=== PATIENT | male | born 1940 | race Caucasian/White ===

== ENCOUNTER → 2016-04-15 | Outpatient (CLI) | payer MEDICARE, OTHER ==
--- NOTE | 2016-04-15 09:21 | RAD ---
EXAM DESCRIPTION: Left hand series. CLINICAL HISTORY: Left hand pain. COMPARISON: February 08, 2016, right wrist TECHNIQUE: Three views were submitted for evaluation. 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 These findings are similar to the contralateral hand dated February 08, 2016. Soft tissues are unremarkable. Further imaging could be considered if there is clinical concern for an occult scaphoid fracture (pain over the anatomical snuff box). IMPRESSION: Degenerative change as described above. No definitive fracture noted on today's Electronically signed by: Jonh Hensley MD 04/15/2016 09:19
== END ==
LOC: RAD 08:18
PROVIDERS: ATTEND Orthopaedic Surgery
DX: M79.642 Pain in left hand (principal); M12.842 Other specific arthropathies, not elsewhere classified, left hand

== ENCOUNTER → 2016-12-19 | Outpatient (CLI) | payer MEDICARE, OTHER ==
--- NOTE | 2016-12-19 12:24 | MRI ---
EXAM DESCRIPTION: Lumbar Spine w/o Contrast CLINICAL HISTORY: 76 years, Male, LUMBAR RADICULOPATHY right leg pain COMPARISON: FINDINGS: Sagittal and axial sequences. Bone marrow signal is somewhat heterogeneous but not worrisome. Mild Modic changes L4-5 and L5-S1. Conus terminates at L1. Mild bulge L1-2. L2-3 disc unremarkable. Mild facet degenerative change. At L3-4 narrowing with diffuse bulging disc and mild central stenosis. At L4-5, narrowing with diffuse bulging disc facet degenerative change. Moderately severe central stenosis. At L5-S1 narrowing with mild bulging disc asymmetric to the left. Slight left foraminal encroachment. IMPRESSION: 1. Narrowing L4-5 with diffuse bulging disc and degenerative change. Moderately severe central stenosis. 2. Mild narrowing with bulging disc L3-4. Facet degenerative change and mild central stenosis 3. Bulging disc L5-S1 asymmetric to left with foraminal narrowing Electronically signed by: Marco Antonio Morillo MD 12/19/2016 12:23 PM CDT
== END | disposition home or self-care (01) ==
LOC: MRI 09:05
PROVIDERS: ATTEND Family Medicine
DX: M54.16 Radiculopathy, lumbar region (principal)

== ENCOUNTER → 2017-01-05 | Outpatient (CLI) | payer MEDICARE, OTHER ==
--- NOTE | 2017-01-05 11:44 | RAD ---
EXAM DESCRIPTION: Hand,Right 3 Views CLINICAL HISTORY: PAIN IN RIGHT HAND COMPARISON: None. TECHNIQUE: 3 views right. FINDINGS: Degenerative changes are observed in the distal interphalangeal joints. No fracturing is detected. Some calcification of the triangle fibrocartilage is noted. Proximal interphalangeal joint arthritis is also observed in the fourth and fifth digits. Degenerative changes are observed in the metacarpal carpal articulation of the first digit. IMPRESSION: Degenerative changes are observed as described above. No fracturing is detected. Electronically signed by: Ryan Ellison MD 01/05/2017 11:42 AM CDT
--- NOTE | 2017-01-05 11:45 | RAD ---
EXAM DESCRIPTION: Thumb,Right CLINICAL HISTORY: PAIN IN RIGHT THUMB COMPARISON: None. TECHNIQUE: 3 views right FINDINGS: Degenerative changes are observed in the distal interphalangeal joint. Degenerative changes are also observed in the metacarpal carpal articulation of the first digit. No fracturing is detected. No foreign body is seen in the soft tissues. IMPRESSION: Degenerative changes are observed in the distal interphalangeal joint and metacarpal carpal joint. Electronically signed by: Ryan Ellison MD 01/05/2017 11:43 AM CDT
== END | disposition home or self-care (01) ==
LOC: RAD 07:45
PROVIDERS: ATTEND Orthopaedic Surgery
DX: M79.641 Pain in right hand (principal); M79.644 Pain in right finger(s)

== ENCOUNTER → 2017-01-07 | Outpatient (CLI) | payer MEDICARE, OTHER ==
--- NOTE | 2017-01-09 15:41 | MRI ---
EXAM DESCRIPTION: MRI left shoulder CLINICAL HISTORY: Shoulder pain. Rotator cuff syndrome COMPARISON: None. TECHNIQUE: Multiplanar, multisequence MR images of the left shoulder FINDINGS: Diffuse supraspinatus tendinosis with tendon thickening and increased signal from the critical zone to the insertion. At the posterior supraspinatus/anterior infraspinatus, there is a high-grade partial tear with marked thinning of the tendon from the critical zone to the insertion. Medial lateral extent of tear about 14 mm and anteroposterior about 12 mm. Small region of resorptive cystic change and edema in the oblique facet greater tuberosity. Infraspinatus tendinosis of the mid tendon. Supraspinatus muscle volume is normal with no fatty infiltration. Infraspinatus muscle volume mildly decreased with grade 1 fatty infiltration Teres minor tendon intact. Moderate muscle volume loss and grade 1 fatty filtration. No abnormality of the quadrilateral space or deltoid Subscapularis tendon intact. Normal muscle volume with mild grade 1 fatty streaking Long head biceps tendon normal in the bicipital groove. Intra-articular tendinosis with intratendinous increased signal and mild thickening. Labral anchor intact with some degenerative signal in the anchor and superior labrum. Developmental retroverted glenoid with hypertrophic posterior labrum. No acute labral detachment No high-grade glenohumeral chondrosis or focal osteochondral lesion. Minimal joint fluid without synovitis or intra-articular body. Mild acromioclavicular osteoarthritis. Lateral downsloping of the acromion with subacromial subdeltoid bursal edema IMPRESSION: Structurally significant high-grade partial tear of the posterior supraspinatus/anterior infraspinatus with tendon thinning from the critical zone to the insertion Supraspinatus tendinosis and intra-articular biceps impingement tendinosis Developmental retroverted glenoid with some degenerative signal in the superior labrum Electronically signed by: Nick Buckley MD 01/09/2017 3:40 PM CDT
== END | disposition home or self-care (01) ==
LOC: FT 15:16
PROVIDERS: ATTEND Orthopaedic Surgery
DX: M75.102 Unspecified rotator cuff tear or rupture of left shoulder, not specified as traumatic (principal); X58.XXXA Exposure to other specified factors, initial encounter

== ENCOUNTER → 2017-09-14 | Outpatient (CLI) | payer MEDICARE, OTHER | LOC: GMAB 10:52 | PROVIDERS: ATTEND Family Medicine | DX: E53.8 Deficiency of other specified B group vitamins (principal); R53.82 Chronic fatigue, unspecified; Z12.5 Encounter for screening for malignant neoplasm of prostate | CPT/HCPCS: 82607; 84403; 84443; G0103 ==

== ENCOUNTER → 2019-03-17 | Outpatient (CLI) | payer MEDICARE, OTHER ==
--- NOTE | 2019-03-17 09:51 | RAD ---
EXAM DESCRIPTION: Knee,Left Complete CLINICAL HISTORY: PAIN IN LEFT KNEE COMPARISON: None. IMPRESSION: 4 standing views of the left knee show no acute fracture, focal bone destruction, or joint dislocation. No significant joint space narrowing of the tibiofemoral compartments. Mild narrowing of the lateral patellofemoral compartment with mild posterior superior and inferior osteophytes and irregularity of the patellar articular surface consistent with moderate osteoarthritic changes No joint effusion. Soft tissues are unremarkable. Electronically signed by: Keyshawn Patrick MD 03/17/2019 9:49 AM [facility]
--- NOTE | 2019-03-17 09:51 | RAD ---
EXAM DESCRIPTION: Pelvis CLINICAL HISTORY: PAIN IN LEFT HIP COMPARISON: None. TECHNIQUE: AP pelvis FINDINGS: Prostatic calcification is observed. Phlebolith-like calcification is observed in the pelvis and scrotum. Degenerative changes are observed in the lower lumbar spine. Minimal acetabular osteophyte formation is observed. No hip or pelvic fracturing is detected. IMPRESSION: Minimal degenerative changes are observed. No fracturing is detected. Electronically signed by: Ryan Ellison MD 03/17/2019 9:50 AM [facility]
== END ==
LOC: RAD 08:54
PROVIDERS: ATTEND Orthopaedic Surgery
DX: M16.12 Unilateral primary osteoarthritis, left hip (principal); M17.12 Unilateral primary osteoarthritis, left knee; M25.762 Osteophyte, left knee

== ENCOUNTER → 2019-11-29 | Outpatient (CLI) | payer MEDICARE, OTHER | END | disposition home or self-care (01) | LOC: GMAE 16:42 | PROVIDERS: ATTEND Family Medicine | DX: G60.3 Idiopathic progressive neuropathy (principal); Z79.899 Other long term (current) drug therapy ==

== ENCOUNTER → 2020-01-20 | Outpatient (CLI) | payer MEDICARE, OTHER | LOC: GMAE 12:22 | PROVIDERS: ATTEND Family Medicine | DX: Z12.5 Encounter for screening for malignant neoplasm of prostate (principal); Z79.899 Other long term (current) drug therapy | CPT/HCPCS: 84443; G0103 ==